=== PATIENT | male | born 1955 | race Caucasian/White ===

== ENCOUNTER → 2019-03-30 | Outpatient (CLI) | payer OTHER | LOC: RAD 07:58 | DX: R06.00 Dyspnea, unspecified (principal); R07.9 Chest pain, unspecified; Z88.2 Allergy status to sulfonamides ==

== ENCOUNTER 2019-08-28 05:59 | Inpatient (IN) | payer OTHER ==
[2019-08-10 09:57] LABS: HEMATOCRIT 41.1 % (42.0-52.0); MCH 29.1 pg (26.0-34.0); MCV 85.4 fL (80.0-100.0); RBC 4.81 mil/uL (4.50-6.00); RDW 13.4 % (10.5-14.5); WBC 3.2 thou/uL (4.0-11.0)
[2019-08-10 10:03] LABS: CALCIUM 9.3 mg/dL (8.5-10.1); CREATININE 0.9 mg/dL (0.7-1.3); POTASSIUM 4.5 mmol/L (3.5-5.1)
[2019-08-10 10:04] LABS: URINE BILIRUBIN NEGATIVE (Negative); URINE BLOOD NEGATIVE (Negative); URINE CLARITY CLEAR; URINE COLOR YELLOW; URINE GLUCOSE-RANDOM* NEGATIVE (Negative); URINE KETONES NEGATIVE (Negative); URINE LEUKOCYTES-REFLEX NEGATIVE (Negative); URINE NITRITE-REFLEX NEGATIVE (Negative); URINE PROTEIN (DIPSTICK) NEGATIVE (Negative); URINE SPECIFIC GRAVITY 1.025 (1.005-1.035); URINE UROBILINOGEN 0.2 E.U./dl (0.2-1.0)
[~2019-08-28] VITALS: Ht 177.8 cm; Wt 91.2 kg
[~2019-08-28 05:59] MED LIST: ALBUTEROL2.5 MG/0.1 INH; ALBUTEROL2.5 MG/3 M INH; ALEVE220 M1 PO; FLOMAX0.4 MG PO; IBUPROFEN 800800 M1 PO; INCRUSE ELLI62.5 MCG INH; LIPITOR 40 MG T40 M1 PO; MELATONIN10 M3 PO; MIRALAX17 GM PO; PREDNISONE 10 M10 M1 PO; PROAIR HFA8.5 GM INH; PROBIOTIC1 EAC7 PO; SUDAFED PE10 M2 PO; SYMBICORT80 MCG/4.1 INH; TURMERIC500 M2 PO
[2019-08-28 09:21] VITALS: BP 137/72
--- NOTE | 2019-08-28 11:17 | O ---
[facility] [place] [address] OPERATIVE REPORT Name: TALON CHANG Room #: 150-3 ADM IN M.R.#: [id number] Admission: 08/28/19 Attend Phys: Blake Goodman Discharge: Date of : 51 Report #: [id number] THIS REPORT FOR: //name// CC: Blake Carvajal DATE OF SERVICE: 08/28/2019 PREOPERATIVE DIAGNOSES: Right shoulder pain, osteoarthritis, biceps tendinopathy. POSTOPERATIVE DIAGNOSES: Right shoulder pain, osteoarthritis, biceps tendinopathy. PROCEDURE PERFORMED: Right total shoulder arthroplasty with open biceps tenodesis. SURGEON: Blake Lopez MD NIB ASSEMBLER: Anastasia Barksdale PA-C. ANESTHESIA: General with preoperative ultrasound-guided interscalene block. FLUIDS: 1000 mL crystalloid. ESTIMATED BLOOD LOSS: Approximately 150 mL. IMPLANTS UTILIZED: DePuy Global Unite stem size 12 stem and proximal body, 52 x 18 eccentric humeral head with a 48-mm anchor peg glenoid. DESCRIPTION OF PROCEDURE: After proper identification of the patient and operative site in preoperative holding area, the operative site was signed by myself. Prophylactic antibiotics given. The patient elected to receive an ultrasound-guided block after reviewing the risks, benefits, alternatives, and potential complications with anesthesia. After a satisfactory block, the patient was brought back to the operative suite. After induction of satisfactory general endotracheal anesthesia, the patient was carefully positioned in the beach chair with head of bed elevated approximately 40 degrees. Right shoulder was sterilely prepped and draped in the usual manner with final skin draping with Ioban. A Doocuments limb positioning system was utilized throughout the entire procedure. Anterior deltopectoral approach was planned. Skin was incised sharply. Full-thickness skin flaps were developed. Cephalic vein was identified and retracted laterally. Subdeltoid adhesions were carefully freed bluntly and a La deltoid retractor was utilized to retract the soft tissues. Pronounced tenosynovitis in more of a ganglion cyst type of swelling on the more proximal aspect of the bicipital groove was noted. [address] [address] OPERATIVE REPORT Name: TALON CHANG Room #: 150-3 ADM IN M.R.#: [id number] Admission: 08/28/19 Attend Phys: Blake Goodman Discharge: Date of : 51 Report #: [id number] Partial-thickness tearing and tendinopathy was present about the biceps as the bicipital groove was opened as well as the rotator interval. The anterior circumflex vessels were identified, ligated, and cauterized. Biceps was tenodesed to the undersurface of the pectoralis major with #2 FiberWire. A lesser tuberosity osteotomy was performed and a pronounced glenohumeral joint arthrosis with complete loss of chondral surface and fitting and subchondral cyst noted. Peripheral osteophytes were carefully removed. Capsule was carefully released off the inferior humerus and great care was taken to identify and protect the axillary nerve throughout the entire procedure. At this point, a humeral head osteotomy was performed in approximately 25 degrees of retroversion, which matched his pilot point retroversion and a 135-degree angle using a cutting guide/template. Humeral head was osteotomized. Cuff was intact. Any peripheral osteophytes were carefully removed by hand. This was reamed by hand with hand reamers of the canal up to a size 12 stem, which matched the preoperative templating. Trial broach was then inserted and had good purchase and fit and a protection plate was applied. At this point, a circumferential release of the subscapularis and the anterior capsule was released and excised. The joint was carefully distended with a lamina cardiac specialist and the labrum and remaining biceps tendon was excised circumferentially. The capsule was carefully released off the inferior glenoid. There was excellent exposure. The patient had a thin glenoid that still appeared to be amenable to a resurfacing and glenoid placement. A 48-mm size glenoid provided the best overall fit with the preoperative templating and TruMatch software. Guidepin was positioned, it was inserted, checked visually as well as by palpation medially along the glenoid neck. This was then reamed. Step drill was utilized. Excess bone graft was saved for the anchor peg portion. Next, the multipin guide was carefully inserted. These were drilled. Derotation pegs were utilized and this area was thoroughly irrigated with normal saline. The anterior-inferior peg perforated which matched the anticipated glenoid placement on the TruMatch software as well as the central peg had a perforation as well. Remaining 2 were otherwise contained. This was irrigated. FloSeal was utilized. Prior to this, a trial was placed with excellent fixation that was well seated. The 48-mm anchor peg glenoid was bone grafted. Bone cement was prepared on the back table, placed in a Tuohy syringe. FloSeal was irrigated, dried, and suctioned and then the contained peripheral pegs were cemented and pressurized. Any excess bone cement was removed. The component along the central peg was bone grafted. This was then carefully impacted into position, it had excellent fit and stability, was held firmly in place until the cement had cured and then attention was divided to the humerus. A plastic dura was used to protect this protecting the glenoid component. A 52 x 18 eccentric humeral head provided the best overall fit and recreation of the proximal humeral anatomy. There is approximately 50% translation posteriorly. Next, trial implants were removed. Four drill holes were placed in the anterior cortex of the humerus where #2 FiberWire was passed. The stem was assembled on the back table. The joint was thoroughly irrigated with normal saline antibiotic irrigant. The stem after it was assembled and tightened on the backtable was carefully impacted into [facility] [address] [place] [address] OPERATIVE REPORT Name: TALON CHANG Room #: 150-3 ADM IN [facility].#: [id number] Admission: 08/28/19 Attend Phys: Blake Goodman Discharge: Date of : 51 Report #: [id number] position. The Global Unite box osteotome had been utilized as well prior to the insertion. The inferior 2 sutures were wrapped around the stem. This was carefully impacted into position and it was well seated. No evidence of fracture was appreciated. The patient had excellent bone quality and the head was then placed in the appropriate orientation and rotation and impacted into position, felt to be stable. Subscapularis was repaired with modified Jimy-Umer technique with four #2 FiberWires and then the lateral portion of the rotator interval was closed with #2 FiberWire. The patient could easily be externally rotated 45 degrees without any undue tension on the subscap. Axillary nerve was intact. The joint was thoroughly irrigated with normal saline. One gram vancomycin powder was utilized, half at deep, half at more superficial. An 0 Vicryl was used to close deltopectoral interval, 2-0 Vicryl for the subcutaneous tissues, final skin closure with running subcuticular Monocryl. This was sealed with Dermabond. Aquacel dressing was applied. He was placed in a sling and abduction pillow, awakened, and transferred to the recovery room in stable condition. Qualified data entry assistant utilized throughout the entire procedure to aid in patient limb positioning, visualization, and retraction of the soft tissues, instrument passage, closure, and sling and dressing application. <ELECTRONICALLY SIGNED> By: Blake Lopez MD 08/28/19 [id number] [id number] Blake Lopez MD /nt
--- NOTE | 2019-08-28 15:02 | NUR ---
PT CARE ASSUMED AT 1000.A&Ox4. PT IS AT BEDSIDE. SCRIPTS WERE HANDED TO FOR HER TO FILL. COPY WAS SIGNED. PT. PAIN IS CONTROLLED WITH MEDICATION. BLOCK IN PLACE. POLAR PACK IN PLACE. SCD'S AND [facility]ES IN PLACE. IV PATENT WITH NO SWELLING OR REDNESS. PT. HAS AQUACELL IN PLACE. VITALS STABLE. TYPE 2 DIABETIC WITH NO ACHS, INSULIN, OR MEDICATION. BED IS LOCKED, ALARM ON, IN LOW POSITION. CALL LIGHT IN PLACE.
[2019-08-28 16:10] VITALS: BP 104/71
[2019-08-28 21:00] VITALS: BP 98/88
[2019-08-29 03:00] VITALS: BP 104/75
[2019-08-29 04:37] LABS: HEMATOCRIT 32.8 % (42.0-52.0)
[2019-08-29 04:41] LABS: POTASSIUM 4.2 mmol/L (3.5-5.1)
[2019-08-29 07:43] VITALS: BP 122/77
--- NOTE | 2019-08-29 08:03 | NUR ---
ASSESSEMNT COMPLETED.PT C/O NOT URINATING,WAS ENCOURAGED TO TURN THE SINK WATER ON AND TRY.PT WAS ABLE TO START URINATING AGAIN.PT C/O PAIN AT THE BACK OF HIS NECK,MANAGED WITH MED.PT UP WITH SBA TO THE BR.PT ABLE TO MAKE HIS NEEDS KNOWN.R SHOULEDR IMMOBILIZED,RENAG C/D/I.POLAR PACK IN PLACE.REPORT TO AM NURSE.
[2019-08-29 11:06] VITALS: BP 122/77
== END 2019-08-29 15:30 | disposition home or self-care (01) | DRG 483 ==
LOC: 4S 05:59 → TBA 05:59 → PRE 07:24 → 4S 11:25 → TBA 16:06 → 4S 08-29 15:30
PROVIDERS: Physician Assistant Surgical; ADMIT Orthopaedic Surgery Sports Medicine
PROC: 0PUC07Z Supplement Right Humeral Head with Autologous Tissue Substitute, Open Approach (ICD-10-PCS; principal; 2019-08-28)
PROC: 0RRJ0JZ Replacement of Right Shoulder Joint with Synthetic Substitute, Open Approach (ICD-10-PCS; principal; 2019-08-28)
PROC: 0LS30ZZ Reposition Right Upper Arm Tendon, Open Approach (ICD-10-PCS; principal; 2019-08-28)
DX: M19.011 Primary osteoarthritis, right shoulder (principal); M75.21 Bicipital tendinitis, right shoulder; J45.909 Unspecified asthma, uncomplicated; N40.0 Benign prostatic hyperplasia without lower urinary tract symptoms; E78.5 Hyperlipidemia, unspecified; R51 Headache; K44.9 Diaphragmatic hernia without obstruction or gangrene; Z79.899 Other long term (current) drug therapy
CPT/HCPCS: 10102; 50010; 50101; 50172; 50386; 50417; 50697; 50733; 51320; 51751; 52138; 52256; 53000; 53078; 54118; 55430; 56521; 56524; 56525; 56526; 56530; 57095; 57103; 62110; 62900; 64043; 65060; 70005

== ENCOUNTER → 2020-06-10 | Outpatient (CLI) | payer OTHER ==
[~2020-06-10] MED LIST changes: +COQ-10100 MG PO; +MULTIVITAMINS PO; +TYLENOL EXTRA500 MG PO; +VENTOLIN HFA 1818 GM INH; +VITAMIN B122500 MCG PO; +YUPELRI175 MCG/3 INH
== END ==
LOC: LAB 08:21
PROVIDERS: ATTEND Orthopaedic Surgery
DX: Z01.812 Encounter for preprocedural laboratory examination (principal); Z20.828 Contact with and (suspected) exposure to other viral communicable diseases

== ENCOUNTER 2020-06-15 10:09 | Observation (INO) | payer OTHER ==
[2020-06-06 10:48] LABS: HEMOGLOBIN 13.7 gm/dL (14.0-18.0); MCH 29.5 pg (26.0-34.0); MCHC 35.1 g/dL (28.0-37.0); MCV 83.9 fL (80.0-100.0); RBC 4.65 mil/uL (4.50-6.00); WBC 4.8 thou/uL (4.0-11.0)
[2020-06-06 10:55] LABS: URINE BILIRUBIN NEGATIVE (Negative); URINE BLOOD NEGATIVE (Negative); URINE CLARITY CLEAR; URINE COLOR YELLOW; URINE GLUCOSE-RANDOM* 1+ (Negative); URINE KETONES NEGATIVE (Negative); URINE LEUKOCYTES-REFLEX NEGATIVE (Negative); URINE NITRITE-REFLEX NEGATIVE (Negative); URINE PROTEIN (DIPSTICK) NEGATIVE (Negative); URINE UROBILINOGEN 0.2 E.U./dl (0.2-1.0)
[2020-06-06 10:59] LABS: CALCIUM 9.3 mg/dL (8.5-10.1); POTASSIUM 4.2 mmol/L (3.5-5.1)
[~2020-06-15] VITALS: Ht 177.8 cm; Wt 90.7 kg
--- NOTE | ~2020-06-15 | O ---
[facility] [address] [place] [address] OPERATIVE REPORT Name: TALON CHANG Room #: 150-5 ADM IN M.R.#: [id number] Admission: 06/15/20 Attend Phys: Salinas Ambriz MD Discharge: Date of : 51 Report #: [id number] THIS REPORT FOR: cc: Armani Carvajal MD, Michael D. MD Abraham,Salinas Marks MD ~ CC: Armani Ambriz DATE OF SERVICE: 06/15/2020 PREOPERATIVE DIAGNOSIS: Left knee osteoarthritis. POSTOPERATIVE DIAGNOSIS: Left knee osteoarthritis. PROCEDURE: Left total knee arthroplasty using Navio robotic audiology assistant. SURGEON: Salinas Ambriz MD. LICENSED INVESTMENT SALES ASSISTANT: Rayne Blackwell PA-C. INDICATIONS FOR LICENSED INVESTMENT SALES ASSISTANT: Throughout the case, extensive retraction and manipulation of the knee was required. This was afforded to me by my audiology assistant. ANESTHESIA: LMA with an adductor canal block. IMPLANTS: [employer] size 6 Journey II BCS Oxinium femur, size 6 tibia, size 9 polyethylene and size 35 patella. TOURNIQUET TIME: 54 minutes. ESTIMATED BLOOD LOSS: 25 mL. COMPLICATIONS: None. SPECIMENS: None. CONDITION UPON LEAVING THE OPERATING ROOM: Stable. INDICATIONS FOR PROCEDURE: The patient is a 65-year-old gentleman with severe left knee osteoarthritis. He had failed conservative measures for this and after discussion with him, he elected for left total knee arthroplasty. DESCRIPTION OF PROCEDURE: Risks, benefits, alternatives, complications were discussed in detail with the patient including but not limited to risk of anesthesia, risk of damage to nerves, arteries, blood vessels, risk for [facility] [address] [place] [address] OPERATIVE REPORT Name: TALON CHANG Room #: 150-5 ADM IN ..#: [id number] Admission: 06/15/20 Attend Phys: Salinas Ambriz MD Discharge: Date of : 51 Report #: [id number] infection, bleeding, risk for continued knee pain, need for reoperation. Informed consent was obtained from the patient. Left knee was appropriately marked in the preoperative holding area. IV Ancef was given for preoperative antibiotics. Adductor canal block was placed by anesthesia. He was brought to the operating room and placed in supine position on operating room table. LMA anesthesia was induced without complication. Tourniquet was placed on the left thigh. Left lower extremity was prepped and draped in normal sterile fashion. Timeout was performed properly identifying the patient and procedure as well as the instrumentation and implants. All in the operating room were in agreement. Left lower extremity was exsanguinated, tourniquet was inflated. Tourniquet time was 54 minutes. Standard midline approach to the knee was made with 10 blade through the skin. Dissection was taken down sharply to the fascia and deep flaps were developed medially and laterally. Fresh 10 blade was used to make a medial parapatellar arthrotomy and the knee was inspected. There was severe tricompartmental osteoarthritis. ACL and PCL were removed sharply. Reference pins were placed in the femur and the tibia. The knee was then digitally mapped using the [employer] robotic system. Intraoperative plan was made and we sized the size 6 femur with a size 6 tibia and a 10 spacer. After acceptance of the intraoperative plan, distal femoral cut was made with a Navio bur. Distal femoral cutting block was pinned in place and the chamfer cuts were made. Attention was turned to the tibia. Remainder of the menisci removed with Bovie cautery. Tibial resection guide was pinned in place and tibial resection was made. Flexion and extension gaps were then checked and found to have good balance in flexion and extension both medially and laterally. Tibia was sized, found to be a size 6. A size 6 tibial trial was placed, pinned and punched. A size 6 femoral trial was placed and a box cut was made. This was then trialed with a size 9 polyethylene. The size 9 demonstrated 1-2 millimeter of laxity medially and laterally throughout range of motion. A 9 mm was then resected from the posterior surface of the patella and a size 35 patellar trial button was placed. Knee was taken through range of motion, found to be stable, found to have good patellar tracking. Trial components were removed. Bony ends were thoroughly irrigated with normal saline. Final size 6 tibia, size 6 Journey II BCS Oxinium femur and a size 35 patella were cemented in place using standard cementation techniques. While the cement cured, a periarticular injection consisting of morphine, ropivacaine, epinephrine and Toradol was placed around the knee joint capsule. After the cement cured, the tourniquet was deflated. Hemostasis was obtained with Bovie cautery. Final size 9 polyethylene was placed. A gram of vancomycin was placed deep in the joint. The fascia was closed with 0 Vicryl, skin was closed with 2-0 Vicryl, 3-0 Monocryl. Dermabond and a HERSON dressing was applied. The patient tolerated this procedure well and went to recovery room under care of anesthesia postoperatively. By: [id number] Salinas Ambriz MD /jemma
[2020-06-15 11:51] VITALS: BP 138/94
--- NOTE | 2020-06-15 20:19 | NUR ---
PATIENT ADMITTED FROM OR WITH LEFT TOTAL KNEE REPLACEMENT. PATIENT HAS HERSON DRESSING, KNEE HIGH [facility], SCD'S, [facility]. PATIENT ALERT AND ORIENTED X 4. PATIENT C/O MILD PAIN 2/10. NO NAUSEA REPORTED. PATIENT HAS LEFT FOREAMR IV IN PLACE. PATIENT GIVEN BOX LUNCH. PATIENT HAS URINAL AT BEDSIDE. ADMISSION DONE. REPORT GIVEN TO LORENA/RN.
[2020-06-15 20:37] VITALS: BP 110/76
[2020-06-15 20:45] VITALS: BP 115/78
[2020-06-15 21:30] VITALS: BP 111/76
[2020-06-16] VITALS: BP 112/67
--- NOTE | 2020-06-16 04:03 | NUR ---
ASSESSED AT START OF SHIFT, PT A&OX4 IV INTACT WITH IVF. HYDROCODONE GIVEN FOR MILD PAIN 11/16. URINAL AT BEDSIDE. SCD'S, POLAR PACK AND TEDHOSE INTACT. REGLAN GIVEN FOR STOMACH UPSET. FALL PREC IN PLACE AND CALL LIGHT IN REACH WILL CONT TO MONITOR.
[2020-06-16 05:20] VITALS: BP 118/67
[2020-06-16 06:00] LABS: HEMATOCRIT 34.7 % (42.0-52.0); MCH 29.4 pg (26.0-34.0); MCHC 34.5 g/dL (28.0-37.0); MCV 85.3 fL (80.0-100.0); RBC 4.07 mil/uL (4.50-6.00); RDW 12.7 % (10.5-14.5); WBC 12.1 thou/uL (4.0-11.0)
[2020-06-16 08:53] VITALS: BP 116/69
--- NOTE | 2020-06-16 09:05 | NUR ---
ASSESSMENT: CM REVIEWED CHART AND MET WITH PATIENT AT THE BEDSIDE. PT IS ALERT AND ORIENTED X4. PT IS HERE S/P LEFT KNEE REPLACEMENT. PT REPORTS LIVING IN A HOUSE WITH HIS AND DAUGHTER. PT REPORTS HAVING 3 STEPS WITH HANDRAILS TO ENTER AND NO STEPS HE HAS TO USE ONCE INSIDE. PT REPORTS THAT HE HAS A BASEMENT BUT DOES NOT NEED TO GO DOWN THERE. PT REPORTS THAT HE HAS A CANE AT HOME AND HAD A WALKER BUT IS VERIFYING WITH HIS TO MAKE SURE IT IS STILL THERE. PT REPORTS HE HAS OUTPATIENT THERAPY ARRANGED AT [facility] IN [place] STARTING ON SATURDAY. CM DISCUSSED ROLE AND WILL FOLLOW BACK UP WITH PATIENT TO MAKE SURE HE HAS A WALKER. PT IS TO WORK WITH THERAPY TODAY. CM WILL COTNINUE TO FOLLOW TO ASSIST NEEDED.
[2020-06-16 10:06] VITALS: BP 116/69
--- NOTE | 2020-06-16 16:02 | NUR ---
Assumed care of pt. at 0700. Pt. was calm and cooperative. Pt. did not voice any pain and was excited for discharge. Discharge orders received. Discharge teaching provided. Pt. discharged with all belonings and .
== END 2020-06-16 12:00 | disposition home or self-care (01) ==
LOC: PRE 10:09 → TBA 10:39 → 4S 14:23 → PRE 15:13 → 4S 06-16 12:00
PROVIDERS: ADMIT Orthopaedic Surgery; ATTEND Orthopaedic Surgery
DX: M17.12 Unilateral primary osteoarthritis, left knee (principal); Z79.899 Other long term (current) drug therapy
CPT/HCPCS: 27447; S2900; 10195; 50010; 50101; 50415; 50954; 51130; 51225; 51320; 52001; 52282; 53000; 53078; 53365; 54118; 56527; 56528; 57095; 57103; 57110; 57127; 57180; 62110; 62900; 64039; 70005